=== PATIENT | male | born 1945 | race African-American/Black ===

== ENCOUNTER 2022-07-19 05:29 | Observation (INO) ==
[2022-07-19] MEDS ORDERED: ALVIMOPAN 12 MG CAPSULE PO STA (05:34)
[2022-07-19] MEDS ORDERED: LACTATED RINGERS 1,000 ML IV SCH (06:00)
[2022-07-19] MEDS ORDERED: cefTRIAXone 1,000 MG in SODIUM CHLORIDE 0.9% 100 ML IV ONE (06:00)
[2022-07-19] MEDS ORDERED: GABAPENTIN 400 MG CAPSULE PO ONE (06:12)
[2022-07-19] MEDS ORDERED: FAMOTIDINE 20 MG TABLET PO ONE (06:12)
[2022-07-19] MEDS ORDERED: SCOPOLAMINE 1.5 MG PATCH TRANSDERM ONE (06:12)
[2022-07-19] MEDS ORDERED: FAMOTIDINE 20 MG TABLET ONE (06:14)
[2022-07-19] MEDS ORDERED: LIDOCAINE 1% 5 ML VIAL ONE (06:20)
[2022-07-19] MEDS ORDERED: fentaNYL 100 MCG/2 ML VIAL ONE (06:32)
[2022-07-19] MEDS ORDERED: buprenorphine HCL 0.3 MG/ML VIAL ONE (06:43)
[2022-07-19] MEDS ORDERED: MIDAZOLAM 2 MG/2 ML VIAL ONE (06:43)
[2022-07-19] MEDS ORDERED: ROPIVACAINE 0.5% 30 ML VIAL ONE (06:48)
[2022-07-19] MEDS ORDERED: DESFLURANE 1 UNIT/15 MINUTE INH ONE ×3 (07:06→09:54)
[2022-07-19] MEDS ORDERED: PHENYLEPHRINE 1 MG/10 ML SYRINGE IV ONE (07:32)
[2022-07-19 07:49] LABS: Bilirubin,Urine Negative (Negative); Blood, Urine Small mg/dL (Negative); Glucose,Urine (UA) Negative (Negative); Ketones,Urine Negative (Negative); Mucus,Urine Occasional /LPF (Occasional); Nitrite,Urine Negative (Negative); Protein,Urine Negative (Negative); RBC,Urine 7 /HPF (0-4); Urine Appearance Clear (Clear); Urine Color Yellow (Yellow); Urine Specific Gravity 1.025 (1.001-1.035); Urine Urobilinogen 0.2 eU/dL (<2.0); Urine pH 6.5 (4.5-8.0)
[2022-07-19] MEDS ORDERED: ACETAMINOPHEN INJ 1,000 MG/100 ML VIAL IV ONE (08:00)
[2022-07-19] MEDS ORDERED: ROCURONIUM 50 MG/5 ML VIAL IV ONE (08:00)
[2022-07-19] MEDS ORDERED: propofoL 200 MG/20 ML VIAL IV ONE (08:00)
[2022-07-19] MEDS ORDERED: LIDOCAINE 2% 5 ML VIAL ONE (08:00)
[2022-07-19] MEDS ORDERED: NEOSTIGMINE 10 MG/10 ML VIAL ONE (09:47)
[2022-07-19] MEDS ORDERED: GLYCOPYRROLATE 0.4 MG/2 ML VIAL ONE (09:47)
[2022-07-19] MEDS ORDERED: LACTATED RINGERS 1,000 ML IV ONE (10:22)
[2022-07-19] MEDS ORDERED: ONDANSETRON 4 MG/2 ML VIAL IV PRN ×2 (10:28→11:08)
[2022-07-19] MEDS ORDERED: SIMETHICONE CHEW 125 MG TABLET PO PRN (10:28)
[2022-07-19] MEDS ORDERED: diphenhydrAMINE 50 MG/1 ML VIAL IV PRN ×2 (10:28→11:08)
[2022-07-19] MEDS ORDERED: PROMETHAZINE 25 MG/1 ML VIAL IM PRN (10:28)
[2022-07-19] MEDS ORDERED: traMADol 50 MG TABLET PO PRN (10:31)
[2022-07-19] MEDS ORDERED: HYDROmorphone 1 MG/1 ML SYRINGE IV PRN ×2 (10:32→11:08)
[2022-07-19] MEDS ORDERED: DEXMEDETOMIDINE 200 MCG/2 ML VIAL ONE ×2 (10:32)
[2022-07-19] MEDS ORDERED: PROMETHAZINE INJ 25 MG in SODIUM CHLORIDE 0.9% 50 ML IV PRN (11:08)
[2022-07-19 11:36] LABS: Basophils # 0.1 10*3/uL (0.0-0.2); Basophils % 0.6 % (0.0-0.8); Eosinophils # 0.1 10*3/uL (0.0-0.87); Eosinophils % 0.4 % (0.00-10.9); Hematocrit 39.9 VOL% (42.0-52.0); Hemoglobin 13.1 GM/DL (14.0-18.0); Immature Granulocytes % 0.5 %; Immature Granulocytes Absolute 0.07 #; Lymphocytes # 1.3 10*3/uL (1.4-4.0); Lymphocytes % 9.2 % (21.2-54.2); Mean Corpuscular HGB Conc 32.8 GM/DL (32-36); Mean Corpuscular Volume 88.9 FL (87-102); Mean Platelet Volume 9.9 FL (9.6-12.0); Monocytes # 0.8 10*3/uL (0.11-0.8); Monocytes % 5.8 % (1.7-12.7); Neutrophils % 83.5 % (38.7-73.9); Platelet Count 291 T/CUMM (130-400); Red Blood Count 4.49 MC/CUMM (3.8-5.5); Red Cell Distribution Width 13.8 % (9.3-17.3); White Blood Count 13.9 T/CUMM (4-12)
[2022-07-19] MEDS ORDERED: SODIUM CHLORIDE 0.9% 1,000 ML IV SCH (12:00)
[2022-07-19] MEDS ORDERED: ACETAMINOPHEN 325 MG TABLET PO SCH (12:00)
[2022-07-19 12:09] LABS: Osmolality,Calculated 279.4 MOS/KG (273-304); Potassium 4.7 MMOL/L (3.5-5.1)
[2022-07-19] MEDS ORDERED: SUCCINYLCHOLINE 200 MG/10 ML VIAL ONE (12:19)
[2022-07-19] MEDS ORDERED: INFLUENZA VIRUS VACCINE 0.5 ML SYRINGE IM ONE (14:37)
[2022-07-19] MEDS ORDERED: ALVIMOPAN 12 MG CAPSULE PO SCH (21:00)
[2022-07-19] MEDS ORDERED: DOCUSATE SODIUM 100 MG CAPSULE PO SCH (21:00)
[2022-07-20 05:50] LABS: Basophils # 0.1 10*3/uL (0.0-0.2); Basophils % 0.5 % (0.0-0.8); Eosinophils # 0.1 10*3/uL (0.0-0.87); Eosinophils % 0.9 % (0.00-10.9); Hematocrit 39.8 VOL% (42.0-52.0); Hemoglobin 12.9 GM/DL (14.0-18.0); Immature Granulocytes % 0.4 %; Immature Granulocytes Absolute 0.04 #; Lymphocytes # 1.7 10*3/uL (1.4-4.0); Lymphocytes % 16.9 % (21.2-54.2); Mean Corpuscular HGB Conc 32.4 GM/DL (32-36); Mean Corpuscular Volume 88.8 FL (87-102); Mean Platelet Volume 9.4 FL (9.6-12.0); Neutrophils % 71.3 % (38.7-73.9); Platelet Count 254 T/CUMM (130-400); Red Blood Count 4.48 MC/CUMM (3.8-5.5); Red Cell Distribution Width 13.6 % (9.3-17.3); White Blood Count 9.8 T/CUMM (4-12)
[2022-07-20 06:12] LABS: Calcium 8.4 MG/DL (8.5-10.1); Osmolality,Calculated 275.5 MOS/KG (273-304); Potassium 3.9 MMOL/L (3.5-5.1)
[2022-07-20] MEDS ORDERED: diphenhydrAMINE 50 MG/1 ML VIAL IV PRN (07:39)
[2022-07-20] MEDS ORDERED: SIMETHICONE CHEW 125 MG TABLET PO PRN (07:45)
[2022-07-20] MEDS ORDERED: ONDANSETRON 4 MG/2 ML VIAL IV PRN (07:46)
[2022-07-20] MEDS ORDERED: PROMETHAZINE 25 MG/1 ML VIAL IM PRN (07:46)
[2022-07-20] MEDS ORDERED: HYDROmorphone 1 MG/1 ML SYRINGE IV PRN (07:53)
[2022-07-20] MEDS ORDERED: traMADol 50 MG TABLET PO PRN (07:57)
[2022-07-20] MEDS ORDERED: SODIUM CHLORIDE 0.9% 1,000 ML IV SCH (08:00)
[2022-07-20] MEDS ORDERED: cefTRIAXone 1,000 MG in SODIUM CHLORIDE 0.9% 100 ML IV SCH (09:00)
[2022-07-20] MEDS ORDERED: amLODIPine 10 MG TABLET PO SCH (09:00)
[2022-07-20] MEDS: DOCUSATE SODIUM 100 MG CAPSULE PO SCH ×2 (09:35→20:07)
[2022-07-20] MEDS: POLYETHYLENE GLYCOL POWDER 17 GM PACK PO SCH (09:35)
[2022-07-20] MEDS: ALVIMOPAN 12 MG CAPSULE PO SCH ×2 (09:35→20:07)
[2022-07-20] MEDS: amLODIPine 10 MG TABLET PO SCH (09:35)
[2022-07-20] MEDS: cefTRIAXone 1,000 MG in SODIUM CHLORIDE 0.9% 100 ML IV SCH (09:37)
[2022-07-20] MEDS: ACETAMINOPHEN 325 MG TABLET PO PRN (20:08)
[2022-07-21 05:50] LABS: Basophils # 0.1 10*3/uL (0.0-0.2); Basophils % 0.6 % (0.0-0.8); Eosinophils # 0.1 10*3/uL (0.0-0.87); Eosinophils % 0.8 % (0.00-10.9); Hemoglobin 13.2 GM/DL (14.0-18.0); Immature Granulocytes % 0.4 %; Immature Granulocytes Absolute 0.04 #; Lymphocytes # 1.3 10*3/uL (1.4-4.0); Lymphocytes % 11.8 % (21.2-54.2); Mean Corpuscular Volume 88.1 FL (87-102); Mean Platelet Volume 9.7 FL (9.6-12.0); Monocytes # 1.1 10*3/uL (0.11-0.8); Monocytes % 9.8 % (1.7-12.7); Neutrophils % 76.6 % (38.7-73.9); Platelet Count 267 T/CUMM (130-400); Red Blood Count 4.54 MC/CUMM (3.8-5.5); Red Cell Distribution Width 13.5 % (9.3-17.3); White Blood Count 10.9 T/CUMM (4-12)
[2022-07-21 08:25] VITALS: BP 151/70
[2022-07-21] MEDS: POLYETHYLENE GLYCOL POWDER 17 GM PACK PO SCH (08:57)
[2022-07-21] MEDS: ALVIMOPAN 12 MG CAPSULE PO SCH (08:58)
[2022-07-21] MEDS: DOCUSATE SODIUM 100 MG CAPSULE PO SCH (08:58)
[2022-07-21] MEDS: amLODIPine 10 MG TABLET PO SCH (08:58)
[2022-07-21] MEDS: cefTRIAXone 1,000 MG in SODIUM CHLORIDE 0.9% 100 ML IV SCH (09:01)
[2022-07-21] MEDS: ACETAMINOPHEN 325 MG TABLET PO PRN (10:30)
== END 2022-07-21 10:50 | disposition home or self-care (01) ==
LOC: N.SDS 05:29 → N.3E 05:29 → N.SDSINP 05:29 → N.3E 10:28 → EDSTATUS 12:28
PROVIDERS: ADMIT Surgery; ATTEND Surgery